=== PATIENT | female | born 1985 | race Caucasian/White ===

== ENCOUNTER 2020-08-20 22:30 | Emergency (ER) | payer SELFPAY ==
[2020-08-20 22:35] VITALS: BP 126/72; PULSE 65; RESP 18; TEMP 37.2; O2SAT 98
[2020-08-20 22:51] LABS: Add Manual Diff / Slide Review NO; Basophils Absolute Auto 100 /uL (0-100); Basophils Percent Auto 0.6 % (0-2); Eosinophils Absolute Auto 100 /uL (0-450); Eosinophils Percent Auto 1.2 % (2-4); Hematocrit 41.8 % (36-46); Hemoglobin 14.1 g/dL (12.0-16.0); INR 0.9 (0.9-1.3); Lymphocytes Absolute Auto 1200 /uL (1100-4500); Lymphocytes Percent Auto 10.8 % (25-40); Mean Corpuscular HGB Conc 33.9 % (30-36); Mean Corpuscular Hemoglobin 30.9 PG (26-34); Mean Corpuscular Volume 91.3 fL (80-100); Monocytes Absolute Auto 500 /uL (0-900); Monocytes Percent Auto 5.1 % (3-14); Neutrophils Absolute Auto 8900 /uL (1500-7000); Neutrophils Percent Auto 82.3 % (50-75); Platelet Count 231 X10^3/uL (150-400); Prothrombin Time 10.8 SECONDS (10.1-12.7); Red Blood Cell Count 4.58 X10^6/uL (4.0-5.2); Red Cell Distribution Width 12.6 % (11.6-14.8); White Blood Cell Count 10.8 X10^3/uL (4.5-11.0)
[2020-08-20 23:02] LABS: Alanine Aminotransferase 16 IU/L (<35); Albumin Globulin Ratio 1.6 (1.0-2.8); Alkaline Phosphatase 74 U/L (38-126); Aspartate Aminotransferase 22 IU/L (14-36); BUN Creatinine Ratio 16.4 (6-22); Bilirubin Total 0.2 mg/dL (0.2-1.3); Blood Urea Nitrogen 11 mg/dL (7-17); Calcium 9.6 mg/dL (8.4-10.2); Carbon Dioxide 21 mmol/L (22-32); Chloride 108 mmol/L (98-107); Estimated Glomerular Filt Rate > 60.0 mL/min (>60); Globulin 3.1 g/dL (1.7-4.1); Glucose 117 mg/dL (70-100); HEMOLYSIS < 15 (0-50); Lipase 129 U/L (23-300); PTT Partial Thromboplastin Tim 30 SECONDS (26.4-36.2); Potassium 3.6 mmol/L (3.4-5.1); Sodium 141 mmol/L (137-145); Total Protein 8.1 g/dL (6.3-8.2)
[2020-08-20] MEDS: ONDANSETRON 4 MG/2 ML INJ (23:04)
[2020-08-20] MEDS: HYDROMORPHONE 0.5 MG INJ IV (23:04)
--- NOTE | 2020-08-20 23:41 | DI.CT.S_ITS ---
PROCEDURE: CT ABDOMEN PELVIS W CON INDICATIONS: generalized abdominal pain TECHNIQUE: After the administration of intravenous contrast, 5 mm thick sections acquired from the diaphragm to the symphysis. 5 mm coronal and sagittal reformats were acquired. For radiation dose reduction, the following was used: automated exposure control, adjustment of mA and/or kV according to patient size. COMPARISON: None. FINDINGS: Image quality: Excellent. ABDOMEN: Lung bases: Lung bases are clear. Heart size is normal. Solid organs: There are innumerable low-density nodules in liver, most likely hepatic cysts. Liver is normal in size and enhancement. Gallbladder is normal. Biliary system is non dilated. Pancreas enhances normally. Spleen is normal in size and enhancement. No adrenal nodules. Kidneys demonstrate normal size and enhancement, without hydronephrosis. Peritoneum and bowel: There is a moderate amount of stool in colon. Mild thickening of the distal sigmoid colon is noted. Normal appendix. Bowel loops demonstrate normal wall thickness and caliber. No free fluid or air. Nodes and vessels: No retroperitoneal or mesenteric adenopathy by size criteria. Aorta and inferior vena cava are normal in size. Miscellaneous: No ventral hernias. PELVIS: Genitourinary: Uterus is prominent in size and somewhat heterogeneous in enhancement. Bilateral corpus luteal cyst in ovaries. No pathological free-fluid in pelvis. Bladder wall thickness is normal. Miscellaneous: No inguinal hernias or adenopathy. Bones: No suspicious bony lesions. No vertebral body compression fractures. IMPRESSION: 1. Question of mild thickening of distal sigmoid colon. Differential diagnoses include mild colitis versus artifact due to lack of distension or peristalsis. 2. Innumerable tiny hepatic hypodensities in the liver are most likely cysts. 3. Normal appendix. No significant discrepancy with the shift supervisor radiology preliminary report. Dictated by: Zohreh Cruz M.D. on 08/21/2020 at 8:02 Approved by: Zohreh Cruz M.D. on 08/21/2020 at 8:08
[2020-08-20] MEDS: SODIUM CHLORIDE 0.9% 1,000 ML 1000 ML IV (23:43)
--- NOTE | 2020-08-20 23:43 | ED_ITS ---
HPI - Abdominal Pain General Chief Complaint: Abdominal Pain Stated Complaint: Abd Pain Time Seen by Provider: 08/20/20 22:59 Source: patient, family and EMS Mode of arrival: EMS Limitations: no limitations History of Present Illness HPI narrative: Patient here with . Brought in by ambulance from home. Sudden onset periumbilical sharp pain nonradiating. Ten out of 10. Required fentanyl by EMS. No recent illness. No nausea vomiting diarrhea. No cough cold congestion. No urinary complaints. LMP now Related Data Previous Rx's Medication Instructions Recorded hydrocodone-acetaminophen 1 tab PO Q6H PRN #7 tab 08/21/20 ondansetron 4 mg PO Q8H PRN #10 tab 08/21/20 Allergies Allergy/AdvReac Type Severity Reaction Status Date / Time No Known Drug Allergies Allergy Verified 08/20/20 23:00 Review of Systems Review of Systems Narrative: GENERAL: Denies chills, fatigue, malaise, fever, sweats. HEENT: Denies sinus pain, ear pain, sore throat, difficulty swallowing RESPIRATORY: Denies dyspnea, cough CARDIOVASCULAR: Denies chest pain, palpitations, edema, GASTROINTESTINAL: Denies nausea, vomiting, complains abdominal pain, denies diarrhea, constipation, melena. : Denies dysuria, frequency, hematuria MUSCULOSKELETAL: denies muscle or bony pain SKIN: Denies rash, skin lesions NEUROLOGIC: Denies weakness, headache, numbness, change in speech, confusion ROS Unobtainable: All systems reviewed & are unremarkable except as noted in HPI and below Patient History Social History Smoking Status: Never smoker Smoking Status: Never smoker Substance Use Type: does not use Exam Narrative Exam Narrative: GENERAL: patient appears stated age. Well-nourished, well- developed patient, in no distress, not toxic not dyspneic HEAD: Normocephalic. EYES: Pupils equal round and reactive. No scleral icterus. No injection no discharge ENT: Mucous membranes moist. No drooling no tongue elevation no trismus no malocclusion NECK: Trachea midline. Non tender CARDIOVASCULAR: Regular rate and rhythm without murmurs, gallops, or rubs. RESPIRATORY: Clear to auscultation. Breath sounds equal bilaterally. No wheezes, rales, or rhonchi. GASTROINTESTINAL: Abdomen soft, flat, reproducible periumbilical tenderness, no peritoneal signs nondistended. EXTREMITIES: No gross deformities. BACK: Nontender without deformity or crepitance. No flank tenderness. NEURO: AOx4. SKIN: Warm and dry PSYCH: Not anxious, is cooperative Initial Vital Signs Initial Vital Signs: Vital Signs Temperature 98.9 F 08/20/20 22:35 Pulse Rate 65 08/20/20 22:35 Respiratory Rate 18 08/20/20 22:35 Blood Pressure 126/72 08/20/20 22:35 Pulse Oximetry 98 08/20/20 22:35 Course Course Course Narrative: Pain controlled during course of stay. Nausea as well. Patient for got she needed to give urine specimen and urinated at time of discharge. Does not want to stay to try to give specimen. She desires discharge home Orders Ordered: ED Orders 08/20/20 22:10 Test Serum,Qual Stat 08/20/20 22:12 Complete Blood Count AUTO DIFF Stat Comprehensive Metabolic Panel Stat Lipase Stat Partial Thromboplastin Time Stat Prothrombin Time INR Stat 08/20/20 22:43 EKG-12 Lead Stat 08/20/20 23:41 CT abdomen pelvis w con Stat Discontinued Medications Hydrocodone Bitart/Acetaminophen (Hydrocodone/Acet 5/325 Prepack) 1 bottle MISC SEEINSTR ONE Stop: 08/21/20 01:31 Last Admin: 08/21/20 01:36 Dose: 1 bottle Documented by: ALON Hydromorphone HCl (Hydromorphone 0.5 Mg Inj) 0.5 mg IV NOW ONE Stop: 08/20/20 22:55 Last Admin: 08/20/20 23:04 Dose: 0.5 mg Documented by: SAM Sodium Chloride (Normal Saline 0.9%) 1,000 mls @ 1,000 mls/hr IV BOLUS ONE Stop: 08/21/20 00:40 Last Infusion: 08/21/20 00:48 Dose: 0 mls/hr Documented by: Admin: 08/20/20 23:43 Dose: 1,000 mls/hr Documented by: SAM Ondansetron HCl (Ondansetron 4 Mg Odt Prepack) 1 bottle MISC SEEINSTR ONE Stop: 08/21/20 01:31 Last Admin: 08/21/20 01:36 Dose: 1 bottle Documented by: ALON Reevaluation(s) Reevaluation #1: Reviewed with patient results. as well. They are comfortable with home observation. Appendicitis precautions reviewed with him Time: 01:35 Vital Signs Vital signs: Vital Signs - 8 hr 08/20/20 22:35 08/21/20 01:39 Temperature 98.9 F Pulse Rate 65 68 Respiratory Rate 18 18 Blood Pressure 126/72 110/75 Pulse Oximetry 98 100 MDM - Abdominal Pain Differential Diagnosis Differential diagnosis: Likely abdominal pain, acute appendicitis, calculus of kidney, constipation, diverticulitis, pancreatitis and small bowel obstruction Lab Data Attestation: I reviewed the patient's lab results. Result diagrams: 08/20/20 22:12 08/20/20 22:12 Labs: Lab Results 08/20/20 08/20/20 08/20/20 Range/Units 22:10 22:12 22:12 WBC 10.8 (4.5-11.0) X10^3/uL RBC 4.58 (4.0-5.2) X10^6/uL Hgb 14.1 (12.0-16.0) g/dL Hct 41.8 (36-46) % MCV 91.3 (80-100) fL MCH 30.9 (26-34) PG MCHC 33.9 (30-36) % RDW 12.6 (11.6-14.8) % Plt Count 231 (150-400) X10^3/uL Neut % (Auto) 82.3 H (50-75) % Lymph % (Auto) 10.8 L (25-40) % [place] % (Auto) 5.1 (3-14) % Eos % (Auto) 1.2 L (2-4) % Baso % (Auto) 0.6 (0-2) % Neut # (Auto) 8900 H (8835-6939) /uL Lymph # (Auto) 1200 (8285-3619) /uL [place] # (Auto) 500 (0-900) /uL Eos # (Auto) 100 (0-450) /uL Baso # (Auto) 100 (0-100) /uL PT 10.8 (10.1-12.7) SECONDS INR 0.9 (0.9-1.3) APTT 30 (26.4-36.2) SECONDS Sodium (137-145) mmol/L Potassium (3.4-5.1) mmol/L Chloride (98-107) mmol/L Carbon Dioxide (22-32) mmol/L BUN (7-17) mg/dL Creatinine (0.52-1.04) mg/dL Estimated GFR (>60) mL/min BUN/Creatinine Ratio (6-22) Glucose (70-100) mg/dL Calcium (8.4-10.2) mg/dL Total Bilirubin (0.2-1.3) mg/dL AST (14-36) IU/L ALT (<35) IU/L Alkaline Phosphatase (38-126) U/L Total Protein (6.3-8.2) g/dL Albumin (3.5-5.0) g/dL Globulin (1.7-4.1) g/dL Albumin/Globulin Ratio (1.0-2.8) Lipase (23-300) U/L Serum , Qual Negative (Negative) 08/20/20 Range/Units 22:12 WBC (4.5-11.0) X10^3/uL RBC (4.0-5.2) X10^6/uL Hgb (12.0-16.0) g/dL Hct (36-46) % MCV (80-100) fL MCH (26-34) PG MCHC (30-36) % RDW (11.6-14.8) % Plt Count (150-400) X10^3/uL Neut % (Auto) (50-75) % Lymph % (Auto) (25-40) % [place] % (Auto) (3-14) % Eos % (Auto) (2-4) % Baso % (Auto) (0-2) % Neut # (Auto) (0368-4899) /uL Lymph # (Auto) (4359-7953) /uL [place] # (Auto) (0-900) /uL Eos # (Auto) (0-450) /uL Baso # (Auto) (0-100) /uL PT (10.1-12.7) SECONDS INR (0.9-1.3) APTT (26.4-36.2) SECONDS Sodium 141 (137-145) mmol/L Potassium 3.6 (3.4-5.1) mmol/L Chloride 108 H (98-107) mmol/L Carbon Dioxide 21 L (22-32) mmol/L BUN 11 (7-17) mg/dL Creatinine 0.67 (0.52-1.04) mg/dL Estimated GFR > 60.0 (>60) mL/min BUN/Creatinine Ratio 16.4 (6-22) Glucose 117 H (70-100) mg/dL Calcium 9.6 (8.4-10.2) mg/dL Total Bilirubin 0.2 (0.2-1.3) mg/dL AST 22 (14-36) IU/L ALT 16 (<35) IU/L Alkaline Phosphatase 74 (38-126) U/L Total Protein 8.1 (6.3-8.2) g/dL Albumin 5.0 (3.5-5.0) g/dL Globulin 3.1 (1.7-4.1) g/dL Albumin/Globulin Ratio 1.6 (1.0-2.8) Lipase 129 (23-300) U/L Serum , Qual (Negative) Imaging Data CT scan - abdomen/pelvis: Radiologist's Impression: Mild thickening of the mucosa of the sigmoid colon while this could be secondary to degree of distention and early mild colitis could have a similar appearance. Mild to moderate colonic stool burden. No bowel obstruction. Normal appendix. ECG Data Attestation: I personally reviewed and interpreted this ECG as follows: Interpretation: Normal sinus rhythm rate [address] elevation or depression MDM Narrative Medical decision making narrative: Appropriate for discharge home and home observation. Reviewed with patient and could be early appendicitis but as of right now normal white cell count no fever and appendix visualized on CT scan. No urinary complaints. Likely not UTI given periumbilical discomfort. Discharge Plan Departure Patient Disposition: Home Clinical Impression: Abdominal pain Qualifiers: Abdominal location: periumbilical Qualified Code(s): R10.33 - Periumbilical pain Instructions: DI for Abdominal Pain-Adult Activity Restrictions/Additional Instructions: Return if worse or if any questions or concerns or if any right lower side abdominal pain or any fever chills or vomiting or nausea. Return if any questions or concerns. Prescriptions: New hydrocodone-acetaminophen 5-325 mg tablet 1 tab PO Q6H PRN (Reason: pain) Qty: 7 RF: 0 ondansetron 4 mg tablet,disintegrating 4 mg PO Q8H PRN (Reason: nausea and vomiting) Qty: 10 RF: 0
[2020-08-20 23:52] LABS: Pregnancy Test Serum,Qual Negative (Negative)
[2020-08-21] MEDS: HYDROCODONE/ACET 5/325 PREPACK 1 BOTTLE MISC (01:36)
[2020-08-21] MEDS: ONDANSETRON 4 MG ODT PREPACK 1 BOTTLE MISC (01:36)
[2020-08-21 01:39] VITALS: BP 110/75; PULSE 68; RESP 18; O2SAT 100
== END 2020-08-21 01:40 | disposition home or self-care (01) ==
PROVIDERS: Emergency Provider Emergency Medicine
DX: R10.33 Periumbilical pain (principal); R11.0 Nausea
CPT/HCPCS: 36415; 74177; 80053; 83690; 84703; 85025; 85610; 85730; 93005; 96361; 96374; 99282; 99284; J1170; J2405; Q9967

== ENCOUNTER 2020-08-28 14:30 | Emergency (ER) | payer SELFPAY ==
[2020-08-28] VITALS (10 sets, daily range): BP systolic 123–127; BP diastolic 72–77; PULSE 65–91; RESP 15–23; TEMP 36.8; O2SAT 96–100; BMI 17.1
[2020-08-28 16:01] LABS: Alanine Aminotransferase 17 IU/L (<35); Albumin 4.8 g/dL (3.5-5.0); Albumin Globulin Ratio 1.7 (1.0-2.8); Alkaline Phosphatase 51 U/L (38-126); Aspartate Aminotransferase 22 IU/L (14-36); BUN Creatinine Ratio 17.1 (6-22); Bilirubin Total 0.4 mg/dL (0.2-1.3); Blood Urea Nitrogen 12 mg/dL (7-17); Calcium 9.4 mg/dL (8.4-10.2); Carbon Dioxide 30 mmol/L (22-32); Chloride 105 mmol/L (98-107); Estimated Glomerular Filt Rate > 60.0 mL/min (>60); Globulin 2.9 g/dL (1.7-4.1); Glucose 97 mg/dL (70-100); HEMOLYSIS < 15 (0-50); Lipase 55 U/L (23-300); Potassium 4.4 mmol/L (3.4-5.1); Sodium 139 mmol/L (137-145); Total Protein 7.7 g/dL (6.3-8.2)
[2020-08-28 16:03] LABS: PTT Partial Thromboplastin Tim 31 SECONDS (26.4-36.2)
[2020-08-28 16:04] LABS: Add Manual Diff / Slide Review NO; Basophils Absolute Auto 100 /uL (0-100); Basophils Percent Auto 1.9 % (0-2); Eosinophils Absolute Auto 300 /uL (0-450); Eosinophils Percent Auto 6.5 % (2-4); Hematocrit 42.4 % (36-46); Hemoglobin 14.3 g/dL (12.0-16.0); Lymphocytes Absolute Auto 1300 /uL (1100-4500); Lymphocytes Percent Auto 26.2 % (25-40); Mean Corpuscular HGB Conc 33.8 % (30-36); Mean Corpuscular Hemoglobin 30.8 PG (26-34); Mean Corpuscular Volume 91.1 fL (80-100); Monocytes Absolute Auto 300 /uL (0-900); Monocytes Percent Auto 6.8 % (3-14); Neutrophils Absolute Auto 2900 /uL (1500-7000); Neutrophils Percent Auto 58.6 % (50-75); Platelet Count 225 X10^3/uL (150-400); Red Blood Cell Count 4.65 X10^6/uL (4.0-5.2); Red Cell Distribution Width 12.4 % (11.6-14.8)
--- NOTE | 2020-08-28 19:24 | ED_ITS ---
HPI - Abdominal Pain General Chief Complaint: Abdominal Pain Stated Complaint: can't eat,shaking,pain right side of abd/back 7day Time Seen by Provider: 08/28/20 18:08 Source: patient Mode of arrival: Ambulatory Limitations: no limitations History of Present Illness HPI narrative: Patient is a 35-year-old female with history of POTS syndrome and epilepsy presenting for the 2nd time this month with abdominal pain. She was 1st seen evaluated on August [address] and blood work. Possible mild sigmoid inflammation. She says she has not been able to eat since then she has had increasing right lower quadrant pain and right flank pain. She has felt nauseous she even says that she has swelling of her abdomen. She is quite thin at baseline. He denies any fever or chills. She feels nauseated but Nicolefran see ms to be helping. Related Data Home Medications Medication Instructions Recorded Confirmed carbamazepine [Tegretol XR] 100 mg PO QAM 08/28/20 08/28/20 carbamazepine [Tegretol XR] 200 mg PO BEDTIME 08/28/20 08/28/20 Previous Rx's Medication Instructions Recorded hydrocodone-acetaminophen 1 tab PO Q6H PRN #7 tab 08/21/20 ondansetron 4 mg PO Q8H PRN #10 tab 08/21/20 ondansetron 4 mg PO Q8H PRN #10 tab 08/28/20 Allergies Allergy/AdvReac Type Severity Reaction Status Date / Time No Known Drug Allergies Allergy Verified 08/20/20 23:00 Review of Systems Review of Systems Narrative: GENERAL: Denies chills, fatigue, malaise, fever, sweats, travel HEENT: Denies sinus pain, ear pain, sore throat, difficulty swallowing, neck pain RESPIRATORY: Denies dyspnea, cough, wheezing, hemoptysis, sputum. CARDIOVASCULAR: Denies chest pain, palpitations, orthopnea, edema GASTROINTESTINAL: See HPI : Denies dysuria, frequency, incontinence, hematuria, urinary retention, flank pain. MUSCULOSKELETAL: Denies weakness, joint pain, or bony pain SKIN: No rash, no erythema, no pruritus NEUROLOGIC: Denies weakness, dizziness, headache, numbness, change in speech, confusion PSYCHIATRIC: No concerning psychosocial issues. 12 point review of systems is negative except for those stated above and HPI Patient History Medical History POTS (postural orthostatic tachycardia syndrome) Social History Smoking Status: Never smoker Smoking Status: Never smoker alcohol intake frequency: holidays/special occasions only Substance Use Type: does not use Exam Initial Vital Signs Initial Vital Signs: Vital Signs Temperature 98.2 F 08/28/20 14:42 Pulse Rate 91 H 08/28/20 14:42 Respiratory Rate 20 08/28/20 14:42 Blood Pressure 127/77 08/28/20 14:42 Pulse Oximetry 100 08/28/20 14:42 GENERAL: Thin young 35-year-old female and in no acute distress. HEENT: Head atraumatic,EOMI, pupils reactive, face symmetric, moist mucous membranes CARDIOVASCULAR: Regular rate and rhythm without murmurs, rubs or gallops. RESPIRATORY: Breath sounds equal bilaterally, no wheezes rales or rhonchi. ABDOMEN: Soft, mild tenderness in right lower quadrant positive psoas sign, negative [place] sign no left lower quadrant pain : Minimal CVA tenderness EXTREMITIES: Normal range of motion, no clubbing or edema. Neurovascularly int act NEUROLOGICAL: Alert and oriented x4.Normal gait and speech. Cranial nerves II through XII grossly intact. SKIN: Warm, dry, no laceration, no petechiae, no rashes or lesions. Course Orders Ordered: ED Orders 08/28/20 19:40 CT abdomen pelvis w con Stat 08/28/20 21:43 US pelvic complete Stat Discontinued Medications Acetaminophen (Acetaminophen 325 Mg Tablet) 975 mg PO NOW ONE Stop: 08/28/20 21:44 Last Admin: 08/28/20 21:50 Dose: 975 mg Documented by: CHAUNCEY Ketorolac Tromethamine (Ketorolac 60 Mg/2 Ml Vial) 15 mg IV NOW ONE Stop: 08/28/20 19:51 Last Admin: 08/28/20 20:26 Dose: 15 mg Documented by: HERB Vital Signs Vital signs: Vital Signs - 8 hr 08/28/20 19:30 08/28/20 20:00 08/28/20 22:21 Pulse Rate 80 65 65 Blood Pressure 123/72 Pulse Oximetry 98 98 96 MDM - Abdominal Pain Lab Data Attestation: I reviewed the patient's lab results. Result diagrams: 08/28/20 15:33 08/28/20 15:33 Labs: Lab Results 08/28/20 08/28/20 08/28/20 Range/Units 15:33 15:33 15:33 WBC 5.0 (4.5-11.0) X10^3/uL RBC 4.65 (4.0-5.2) X10^6/uL Hgb 14.3 (12.0-16.0) g/dL Hct 42.4 (36-46) % MCV 91.1 (80-100) fL MCH 30.8 (26-34) PG MCHC 33.8 (30-36) % RDW 12.4 (11.6-14.8) % Plt Count 225 (150-400) X10^3/uL Neut % (Auto) 58.6 (50-75) % Lymph % (Auto) 26.2 (25-40) % [place] % (Auto) 6.8 (3-14) % Eos % (Auto) 6.5 H (2-4) % Baso % (Auto) 1.9 (0-2) % Neut # (Auto) 2900 (8413-9618) /uL Lymph # (Auto) 1300 (1337-0441) /uL [place] # (Auto) 300 (0-900) /uL Eos # (Auto) 300 (0-450) /uL Baso # (Auto) 100 (0-100) /uL PT 12.0 (10.1-12.7) SECONDS INR 1.0 (0.9-1.3) APTT 31 (26.4-36.2) SECONDS Sodium 139 (137-145) mmol/L Potassium 4.4 (3.4-5.1) mmol/L Chloride 105 (98-107) mmol/L Carbon Dioxide 30 (22-32) mmol/L BUN 12 (7-17) mg/dL Creatinine 0.70 (0.52-1.04) mg/dL Estimated GFR > 60.0 (>60) mL/min BUN/Creatinine Ratio 17.1 (6-22) Glucose 97 (70-100) mg/dL Calcium 9.4 (8.4-10.2) mg/dL Total Bilirubin 0.4 (0.2-1.3) mg/dL AST 22 (14-36) IU/L ALT 17 (<35) IU/L Alkaline Phosphatase 51 (38-126) U/L Total Protein 7.7 (6.3-8.2) g/dL Albumin 4.8 (3.5-5.0) g/dL Globulin 2.9 (1.7-4.1) g/dL Albumin/Globulin Ratio 1.7 (1.0-2.8) Lipase 55 D (23-300) U/L Point of care testing: Point of Care Testing Test Results Negative Urine Dip Bedside Urine Glucose Negative Bedside Urine Bilirubin - Negative Bedside Urine Ketone +/- 5 Urine Specific [place] 1.010 Bedside Urine Occult Blood - Negative Bedside Urine Protein - Negative Bedside Urine Urobilinogen - Negative Bedside Urine Nitrite - Negative Bedside Urine Leukocytes - Negative Esterase Imaging Data CT scan - abdomen/pelvis: Radiologist's Impression: PROCEDURE: CT ABDOMEN PELVIS W CON INDICATIONS: rlq pain TECHNIQUE: After the administration of intravenous contrast, 5 mm thick sections acquired from the diaphragm to the symphysis. 5 mm coronal and sagittal reformats were acquired. For radiation dose reduction, the following was used: automated exposure control, adjustment of mA and/or kV according to patient size. COMPARISON: [facility], CT, CT ABDOMEN PELVIS W CON, 08/20/2020, 23:45. FINDINGS: Image quality: Excellent. ABDOMEN: Lung bases: Lung bases are clear. Heart size is normal. Solid organs: Liver is normal in size and enhancement. Scattered well- circumscribed hepatic hypodensities most compatible with benign cyst in similar to the recent prior exam. Gallbladder is unremarkable. Biliary system is non dilated. Pancreas enhances normally. Spleen is normal in size and enhancement. No adrenal nodules. Kidneys demonstrate normal size and enhancement, without hydronephrosis. Peritoneum and bowel: Stomach is not distended. No small bowel obstruction. Prominent small bowel and colonic bowel gas. Possible thickening of the distal sigmoid colon is less conspicuous. Normal appendix. No free fluid or air. Nodes and vessels: No retroperitoneal or mesenteric adenopathy by size criteria. Aorta and inferior vena cava are normal in size. Miscellaneous: No ventral hernias. PELVIS: Genitourinary: Bladder wall thickness is normal. Trace free fluid in the right pelvic cul-de-sac. Small right ovarian cyst measuring 1.4 cm and 0.9 cm. Anteverted uterus. Miscellaneous: No inguinal hernias or adenopathy. Bones: No suspicious bony lesions. No vertebral body compression fractures. Small Schmorl's nodes at L4-L5. IMPRESSION: 1. Prominent small and large bowel gas. No bowel obstruction. 2. Small volume of free fluid in the right pelvis is likely physiologic. Small right ovarian cysts. 3. Normal appendix. No hydronephrosis. Dictated by: Edmundo Skelton M.D. on 08/28/2020 at 20:45 US - BUCKLE ATTACHING MACHINE OPERATOR: Radiologist's Impression: Preliminary report no significant abnormality. Right ovary 4.0 cm x 2.0 cm x 2.70 cm no focal abnormality MDM Narrative Medical decision making narrative: Patient's blood work is overall reassuring. She is quite tender now right lower quadrant CT ordered. I she recently had 1 but is no has pain localized in the right lower quadrant. CT does not show appendicitis but does show some amount of free fluid and small right ovarian cyst. Pelvic ultrasound ordered to rule out any ovarian torsion. Ultrasound is negative. Her pain is better after Toradol and Tylenol. At this time recommend outpatient follow-up. She states that her sister has a history of endometriosis. I explained her that she needs to follow up in have more testing done. Discharge Plan Departure Patient Disposition: Home Clinical Impression: Ovarian cyst Qualifiers: Laterality: right Qualified Code(s): N83.201 - Unspecified ovarian cyst, right side Instructions: Ovarian Cyst Activity Restrictions/Additional Instructions: *You have been diagnosed with right-sided ovarian cyst *What to do: Ultrasound and CT scan show you likely have ovarian cyst which is probably causing your pain. His UA showed follow up with your technical account representative for repeat ultrasound and further testing needed *Continue to take medications as directed Tylenol 650 mg every 4-6 hours if needed for [id number] pain Ibuprofen 600 mg every 6-8 hours if needed for [id number] pain Zofran 4 mg every 8 hours if needed for nausea or vomiting *Follow up with your primary care provider in 2-3 days *Return to ER if you should have persistent vomiting, worsening pain or any new, worsening or concerning symptoms Prescriptions: New ondansetron 4 mg tablet,disintegrating 4 mg PO Q8H PRN (Reason: nausea and vomiting) Qty: 10 RF: 0 No Action carbamazepine [Tegretol XR] 100 mg Tablet Extended Release 12 Hr 100 mg PO QAM RF: 0 carbamazepine [Tegretol XR] 200 mg Tablet Extended Release 12 Hr 200 mg PO BEDTIME RF: 0 hydrocodone-acetaminophen 5-325 mg tablet 1 tab PO Q6H PRN (Reason: pain) Qty: 7 RF: 0 ondansetron 4 mg tablet,disintegrating 4 mg PO Q8H PRN (Reason: nausea and vomiting) Qty: 10 RF: 0
--- NOTE | 2020-08-28 19:40 | DI.CT.S_ITS ---
PROCEDURE: CT ABDOMEN PELVIS W CON INDICATIONS: rlq pain TECHNIQUE: After the administration of intravenous contrast, 5 mm thick sections acquired from the diaphragm to the symphysis. 5 mm coronal and sagittal reformats were acquired. For radiation dose reduction, the following was used: automated exposure control, adjustment of mA and/or kV according to patient size. COMPARISON: [facility], CT, CT ABDOMEN PELVIS W CON, 08/20/2020, 23:45. FINDINGS: Image quality: Excellent. ABDOMEN: Lung bases: Lung bases are clear. Heart size is normal. Solid organs: Liver is normal in size and enhancement. Scattered well-circumscribed hepatic hypodensities most compatible with benign cyst in similar to the recent prior exam. Gallbladder is unremarkable. Biliary system is non dilated. Pancreas enhances normally. Spleen is normal in size and enhancement. No adrenal nodules. Kidneys demonstrate normal size and enhancement, without hydronephrosis. Peritoneum and bowel: Stomach is not distended. No small bowel obstruction. Prominent small bowel and colonic bowel gas. Possible thickening of the distal sigmoid colon is less conspicuous. Normal appendix. No free fluid or air. Nodes and vessels: No retroperitoneal or mesenteric adenopathy by size criteria. Aorta and inferior vena cava are normal in size. Miscellaneous: No ventral hernias. PELVIS: Genitourinary: Bladder wall thickness is normal. Trace free fluid in the right pelvic cul-de-sac. Small right ovarian cyst measuring 1.4 cm and 0.9 cm. Anteverted uterus. Miscellaneous: No inguinal hernias or adenopathy. Bones: No suspicious bony lesions. No vertebral body compression fractures. Small Schmorl's nodes at L4-L5. IMPRESSION: 1. Prominent small and large bowel gas. No bowel obstruction. 2. Small volume of free fluid in the right pelvis is likely physiologic. Small right ovarian cysts. 3. Normal appendix. No hydronephrosis. Dictated by: Edmundo Skelton M.D. on 08/28/2020 at 20:45 Approved by: Edmundo Skelton M.D. on 08/28/2020 at 20:52
[2020-08-28] MEDS: KETOROLAC 60 MG/2 ML VIAL 15 MG IV (20:26)
--- NOTE | 2020-08-28 21:43 | DI.US.S_ITS ---
PROCEDURE: US PELVIC COMPLETE INDICATIONS: RIGHT OVARIAN CYST TECHNIQUE: Real-time scanning was performed of the pelvic organs, with image documentation. Additional endovaginal scanning was necessary due to incomplete visualization of the adnexal and endometrial structures by transabdominal scanning. COMPARISON: [facility], CT, CT ABDOMEN PELVIS W CON, 08/28/2020, 20:00. FINDINGS: Uterus: Uterus is normal in size at 8.6 x 3.5 x 5.3 cm. The endometrium measures 7.3 mm in combined thickness. Ovaries: Right ovary measures 4.0 x 2.0 x 2.7 centimeters. Left ovary measures 3.2 x 2.1 x 1.5 centimeters. Small functional follicles noted in the ovaries bilaterally. Doppler evaluation of the ovaries demonstrates normal vascular flow. Other: No pathologic free abdominal or pelvic fluid. IMPRESSION: 1. Uterus is sonographically normal. 2. Small bilateral ovarian functional follicles . 3. No evidence of ovarian torsion. Please note ultrasound cannot exclude intermittent torsion. Dictated by: Marj Booker MD, PhD on 08/29/2020 at 8:25 Approved by: Marj Booker MD, PhD on 08/29/2020 at 8:28
[2020-08-28] MEDS: ACETAMINOPHEN 325 MG TABLET 975 MG PO (21:50)
== END 2020-08-28 22:50 | disposition home or self-care (01) ==
PROVIDERS: Emergency Medicine; Emergency Provider Emergency Medicine
DX: N83.201 Unspecified ovarian cyst, right side (principal); R11.0 Nausea; R10.31 Right lower quadrant pain; G40.909 Epilepsy, unspecified, not intractable, without status epilepticus; I49.8 Other specified cardiac arrhythmias
CPT/HCPCS: 36415; 74177; 76830; 76856; 80053; 81003; 81025; 83690; 85025; 85610; 85730; 93005; 93010; 96374; 99284; J1885; Q9967